=== PATIENT | female | born 1990 ===

== ENCOUNTER 2018-08-05 19:49 | Emergency (ER) | payer OTHER ==
[2018-08-05] MEDS ORDERED: Lidocaine 5% Patch TD STA (20:28)
[2018-08-05] MEDS ORDERED: Lidocaine 5% Patch TD ONE (20:35)
--- NOTE | 2018-08-05 21:09 | C.PDOC ---
History Of Present Illness Patient c/o right sided low back pain x 1 wee, got worse since yesterday. patient describes pain as sharp, radiating to the right leg. Patient denies any urinary symptoms, denies numbness/weakness to legs, denies fever, denies any types of injury/heavy lifting. Time Seen by Provider: 08/05/18 20:11 Chief Complaint (Nursing): Back Pain History Per: Patient History/Exam Limitations: no limitations Onset/Duration Of Symptoms: Days (7-8) Current Symptoms Are (Timing): Still Present Quality Of Discomfort: Sharp Severity: Moderate Associated Symptoms: denies: Incontinence, New Weakness, New Numbness Exacerbating Factor(s): Movement, Standing Past Medical History Reviewed: Historical Data, Nursing Documentation, Vital Signs Vital Signs: Last Vital Signs Temp 98.3 F 08/05/18 19:55 Pulse 60 08/05/18 19:55 Resp 16 08/05/18 19:55 BP Pulse Ox 100 08/05/18 19:55 - Medical History PMH: No Chronic Diseases Family History: States: No Known Family Hx - Social History Hx Alcohol Use: No Hx Substance Use: No - Immunization History Hx Influenza Vaccination: No Review Of Systems Except As Marked, All Systems Reviewed And Found Negative. Physical Exam - Physical Exam Appears: Well, Non-toxic Skin: Normal Color, Warm, No Rash Head: Atraumatic, Normacephalic Eye(s): bilateral: Normal Inspection Neck: Normal ROM, No Midline Cervical Tenderness, No Paracervical Tenderness Back: Normal Inspection, No CVA Tenderness, No Vertebral Tenderness, Muscle Spasm (right paraspinal at the LS area), No Straight Leg Raising Neurological/Psych: Oriented x3, Normal Speech, Normal Cognition, Normal Motor, Normal Sensation ED Course And Treatment O2 Sat by Pulse Oximetry: 100 - Other Rad LS spine xray X-Ray: Viewed By Me, Read By Radiologist Interpretation: EXAM: CR Lumbar Spine, 8 View. CLINICAL HISTORY: LOWER BACK PAIN. PATIENT IS ON HER MENSTRUAL PERIOD. COMPARISON: None provided. FINDINGS: BONES: No acute fracture or aggressive appearing osseous lesion. ALIGNMENT: Bony alignment is normal. DISCS / DEGENERATIVE CHANGES: The disc spaces are preserved. SOFT TISSUES: The soft tissues are unremarkable. IMPRESSION: No acute lumbar spine abnormality. No acute fracture evident. . Electronically signed on Aug 05, 2018 9:02:46 PM EST by: Rafiq Glaser M.D., Certified by [facility], Diagnostic Radiology Progress Note: Patient refused Toradol IM, was given Ibuprofen po, valium po and lidoderm patch. On re-evaluation patient feels slightly better, ambulatory with no neuro deficit. family at bedside. Patient is stable to be d/c home with PMD follow up. Disposition - Disposition Disposition: HOME/ ROUTINE Disposition Time: 21:07 Condition: STABLE Additional Instructions: Follow up with PMD within 1-2 days. Return to Ed if feel worse. Prescriptions: Lidocaine 5% [Lidoderm] 1 patch TP DAILY #30 patch Ibuprofen [Motrin Tab] 600 mg PO Q8 #30 tab Methocarbamol [Robaxin-750] 750 mg PO TID #30 tab Instructions: Low Back Pain in Adults Forms: [facility] (Moz[place]ican) - Clinical Impression Clinical Impression: Low back pain
[2018-08-05 21:20] VITALS: BP 121/76; PULSE 78; RESP 18; TEMP 98.2
[2018-08-05 21:23] VITALS: O2SAT 100
--- NOTE | 2018-08-06 09:28 | RAD ---
Date of service: 08/05/2018 PROCEDURE: Radiographs of the Lumbar Spine. HISTORY: back pain COMPARISON: No prior. FINDINGS: BONES: Normal alignment. No listhesis. No fracture. DISC SPACES: Unremarkable. OTHER FINDINGS: None. IMPRESSION: Unremarkable radiographs of the lumbar spine.
== END 2018-08-05 21:20 | disposition home or self-care (01) ==
LOC: C.ER 19:49
DX: M54.5 Low back pain (principal)